=== PATIENT | female | born 1970 | race Caucasian/White ===

== ENCOUNTER 2021-07-16 19:48 | Emergency (ER) | payer BC ==
[2021-07-16 20:03] VITALS: TEMP 99.1; BMI 24.0
[2021-07-16] MEDS ORDERED: ADENOSINE 6 MG/2 ML VIAL IVPUSH ONE ×2 (20:18→20:20)
[2021-07-16] MEDS ORDERED: SODIUM CHLORIDE 1,000 ML IV STA (20:20)
[2021-07-16 20:33] LABS: EOS % 0.6 % (0-4.5); HEMATOCRIT 47.6 % (32.4-45.2); HEMOGLOBIN 15.7 GM/dl (10.7-15.3); LYMPH % 25.3 % (8-40); MCH 27.9 pg (25.7-33.7); MEAN CELL VOLUME 84.7 fl (80-96); MEAN PLT VOLUME 8.4 fl (7.5-11.1); MONO % 7.8 % (3.8-10.2); NEUT % 62.3 % (42.8-82.8); PLATELET COUNT 417 10^3/uL (134-434); RBC 5.62 M/mm3 (3.60-5.2); RDW 12.7 % (11.6-15.6); WHITE BLOOD COUNT 16.7 K/mm3 (4.0-10.8)
[2021-07-16 20:40] LABS: ACTIVATED PTT 26.2 SECONDS (25.2-36.5)
[2021-07-16 20:41] LABS: ALBUMIN 4.2 g/dl (3.4-5.0); ALK PHOS 50 U/L (45-117); ANION GAP 12 MMOL/L (8-16); BILIRUBIN,TOTAL 0.4 mg/dl (0.2-1); CALCIUM 9.7 mg/dl (8.5-10); CHLORIDE 105 mmol/L (98-107); CO2 22 mmol/L (21-32); CREATININE 0.8 mg/dl (0.55-1.3); GLUCOSE,RANDOM 107 mg/dl (74-106); SGOT/AST 23 U/L (15-37); SGPT/ALT 21 U/L (13-61); SODIUM 139 mmol/L (136-145); TOT PROT 7.8 g/dl (6.4-8.2)
[2021-07-16 20:44] LABS: INR 1.12 (0.82-1.09); PROTHROMBIN TIME (PATIENT) 12.4 SEC (10.2-13.0)
[2021-07-16 21:25] VITALS: BP 109/82; PULSE 98
== END 2021-07-16 22:11 | disposition home or self-care (01) ==
LOC: FER 19:48
PROC: 3E033GC Introduction of Other Therapeutic Substance into Peripheral Vein, Percutaneous Approach (ICD-10-PCS; principal; 2021-07-16)
PROC: 3E0337Z Introduction of Electrolytic and Water Balance Substance into Peripheral Vein, Percutaneous Approach (ICD-10-PCS; 2021-07-16)
DX: I47.1 Supraventricular tachycardia (principal)
CPT/HCPCS: 36415; 80053; 82550; 84443; 84484; 85025; 85610; 85730; 93005; 99284-25

== ENCOUNTER 2022-01-19 18:49 | Observation (INO) | payer BC ==
[2022-01-19] MEDS ORDERED: ADENOSINE 6 MG/2 ML VIAL IVPUSH ONE ×2 (19:29→19:40)
[2022-01-19] MEDS ORDERED: SODIUM CHLORIDE 1,000 ML IV STA (19:38)
[2022-01-19 20:24] LABS: BILIRUBIN,TOTAL 0.6 mg/dl (0.2-1); CALCIUM 9.8 mg/dl (8.5-10); CREATININE 0.7 mg/dl (0.55-1.3); TOT PROT 7.6 g/dl (6.4-8.2)
[2022-01-19 20:40] LABS: HEMATOCRIT 46.4 % (32.4-45.2); HEMOGLOBIN 16.2 G/dL (10.7-15.3); MCH 29.2 pg (25.7-33.7); MCHC 34.8 g/dl (32.0-36.0); MEAN CELL VOLUME 83.9 fl (80-96); MEAN PLT VOLUME 8.1 fl (7.5-11.1); PLATELET COUNT 395.4 10^3/uL (134-434); RBC 5.53 10^6/uL (3.60-5.2); RDW 14.8 % (11.6-15.6); WHITE BLOOD COUNT 14.9 10^3/uL (4.0-10.8)
[2022-01-19 20:54] LABS: PLATELET ESTIMATE SLT INCREASE
[2022-01-20 01:38] VITALS: BMI 25.3
[2022-01-20 08:15] VITALS: BP 125/76; PULSE 87; TEMP 97.7
[2022-01-20 08:29] LABS: ALBUMIN 3.4 g/dl (3.4-5.0); BILIRUBIN,TOTAL 0.6 mg/dl (0.2-1); CALCIUM 8.9 mg/dl (8.5-10); CREATININE 0.7 mg/dl (0.55-1.3); TOT PROT 6.7 g/dl (6.4-8.2)
[2022-01-20 08:37] LABS: HEMATOCRIT 44.8 % (32.4-45.2); HEMOGLOBIN 15.2 G/dL (10.7-15.3); MCH 28.5 pg (25.7-33.7); MCHC 33.9 g/dl (32.0-36.0); PLATELET COUNT 349.7 10^3/uL (134-434); RBC 5.33 10^6/uL (3.60-5.2); RDW 14.6 % (11.6-15.6); WHITE BLOOD COUNT 10.7 10^3/uL (4.0-10.8)
[2022-01-20] MEDS ORDERED: ASPIRIN 81 MG CHEWABLE TABLETS PO SCH (10:00)
[2022-01-20] MEDS ORDERED: MONTELUKAST NA 10 MG TABLET PO SCH (22:00)
== END 2022-01-20 11:59 | disposition left against medical advice (07) ==
LOC: FER 18:49 → FM/S 01-20 00:29
PROVIDERS: ADMIT Internal Medicine; ATTEND Nurse Practitioner Acute Care
PROC: 3E033GC Introduction of Other Therapeutic Substance into Peripheral Vein, Percutaneous Approach (ICD-10-PCS; principal; 2022-01-20)
PROC: 3E0337Z Introduction of Electrolytic and Water Balance Substance into Peripheral Vein, Percutaneous Approach (ICD-10-PCS; 2022-01-20)
DX: I47.1 Supraventricular tachycardia (principal); R00.2 Palpitations; R77.8 Other specified abnormalities of plasma proteins; R94.31 Abnormal electrocardiogram [ECG] [EKG]; J45.909 Unspecified asthma, uncomplicated; Z86.16 Personal history of COVID-19; Z85.828 Personal history of other malignant neoplasm of skin; Z88.0 Allergy status to penicillin
CPT/HCPCS: 36415; 71045-TC-FY; 80053; 82550; 83735; 84443; 84484; 85025; 85027; 93005; 93010; 93306-TC; 99285-25; C9803-CS; G0378; U0003; U0005